=== PATIENT | male | born 1970 | race American Indian/Alaskan Native ===

== ENCOUNTER 2017-06-19 18:51 | Emergency (ER) | payer OTHER, BC ==
[2017-06-19 20:07] VITALS: BP 152/98
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
[2017-06-19] MEDS ORDERED: MOTRIN PO ONE (21:18)
== END 2017-06-19 21:27 | disposition home or self-care (01) ==
LOC: ED 18:51
DX: S13.4XXA Sprain of ligaments of cervical spine, initial encounter (principal); V49.49XA Driver injured in collision with other motor vehicles in traffic accident, initial encounter; X58.XXXA Exposure to other specified factors, initial encounter; Y93.9 Activity, unspecified; Y92.9 Unspecified place or not applicable; Y99.9 Unspecified external cause status; I10 Essential (primary) hypertension
CPT/HCPCS: 99282